=== PATIENT | female | born 2000 | race Caucasian/White ===

== ENCOUNTER 2024-08-09 16:34 | Emergency (ER) | payer MEDICAID, SELFPAY ==
[2024-08-09 17:04] VITALS: BP 146/90; PULSE 85; RESP 20; TEMP 37.4; O2SAT 95
--- NOTE | 2024-08-09 17:20 | XR_ITS ---
Examination: CT brain head without contrast. 2-D sagittal coronal reconstructions Date and time of exam:August 09, 2024 7055 hours Indications: Seizure with headaches today CTDI: vol (mGy):50.5 DLP: (mGycm):940 Technique: Multiple CT axial sections of the brain have been obtained, 5 mm slice thickness. Contrast has not been administered. 2-D sagittal, coronal reconstructions have been obtained Low dose protocols were performed. One or more of the following dose reduction techniques were used; automated exposure control, adjustment of the mA and/or KV according to patient size, use of iterative reconstruction technique. Findings: No significant ventricular enlargement. Intra-axial or extra-axial hemorrhage density is not seen. No mass effect or midline shift Basal cisterns are not remarkable. Fourth ventricle is midline. Cranial vault intact. Impression: Negative for acute hemorrhage, mass effect or midline shift Consider elective brain MRI follow-up, seizure protocol
--- NOTE | 2024-08-09 17:20 | PD.EDRME ---
Rapid Medical Screening Exam E Arrival date/time: 08/09/24 16:34 This is a 23-year-old female that comes into the emergency room with complaints of seizure x 2 in the last 2 weeks. Per patient patient's family has a long history of seizure disorder. Patient denies fever chills. Patient states that today she has a headache and she has been vomiting as a result. Patient has a history of depression and anxiety. I have greeted and performed a focused initial assessment of this patient. Initial appropriate labs ordered at this time. A comprehensive ED assessment and evaluation of the patient and analysis of all test and completion of medical decision making process will be conducted by additional ED provider. Chief Complaint: Headache Time Seen by Provider: 08/09/24 16:45 Vital signs: Vital Signs Temperature 99.3 F 08/09/24 17:04 Pulse Rate 85 08/09/24 17:04 Respiratory Rate 20 08/09/24 17:04 Blood Pressure 146/90 H 08/09/24 17:04 Pulse Oximetry (%) 95 08/09/24 17:04 Oxygen Delivery Method Room Air 08/09/24 17:04
[2024-08-09 17:47] LABS: Basophils # (Auto) 0.1 Thou/mm3 (0.0-0.2); Basophils % (Auto) 0 % (0-2.5); Eosinophils % (Auto) 0 % (0-10); Hematocrit 46.2 % (36.0-46.0); Hemoglobin 15.5 g/dL (12.0-16.0); Immature Granulocytes % (Auto) 0 % (0-0); Immature Granulocytes Auto 0.03 Thou/mm3 (0.00-0.00); Lymphocytes # (Auto) 2.1 Thou/mm3 (1.0-4.8); Lymphocytes % (Auto) 19 % (10-50); Mean Corpuscular HGB Conc 33.5 g/dl (31.0-37.0); Mean Corpuscular Hemoglobin 27.4 pg (25.0-35.0); Mean Corpuscular Volume 82 fL (80-100); Monocytes # (Auto) 0.6 Thou/mm3 (0.0-0.8); Monocytes % (Auto) 6 % (0-12); Neutrophils # (Auto) 8.3 Thou/mm3 (1.8-7.7); Neutrophils % (Auto) 75 % (37-80); Nucleated Red Blood Cell % 0 /100 WBC (0); Platelet Count 491 Thou/mm3 (140-440); RDW Standard Deviation 40.7 fL (36.4-46.3); Red Blood Count 5.66 Miln/mm3 (4.00-5.20); White Blood Count 11.2 Thou/mm3 (3.6-11.0)
[2024-08-09] MEDS: ONDANSETRON ODT 4 MG TABRAP PO (17:51)
[2024-08-09 18:06] LABS: Alanine Aminotransferase 13 U/L (10-49); Albumin, Serum 4.9 gm/dL (3.5-5.0); Albumin/Globulin Ratio 1.4 (1.2-2.2); Alkaline Phosphatase 67 U/L (46-116); Anion Gap 10 (7-16); Aspartate Amino Transferase 12 U/L (0-34); BUN/Creatinine Ratio 16 Ratio (12-20); Bilirubin,Total 0.3 mg/dL (0.3-1.2); Blood Urea Nitrogen 11 mg/dL (9-23); Calcium 9.7 mg/dL (8.3-10.6); Calcium (Corrected) 9.7 mg/dL (8.5-10.1); Carbon Dioxide 25.6 mMol/L (20.0-31.0); Chloride 105 mMol/L (98-107); Creatinine (Component) 0.7 mg/dL (0.6-1.3); Globulin 3.4 gm/dL (2.3-3.5); Glucose 103 mg/dL (74-106); Osmolality,Calculated 280 (275-295); Potassium 3.8 mMol/L (3.4-5.1); Sodium 141 mMol/L (136-145); Total Protein 8.3 gm/dL (5.7-8.2); eGFR > 60 See Note
[2024-08-09 18:30] LABS: Bilirubin,Urine Negative (Negative); Blood,Urine Negative (Negative); Clarity,Urine Clear (Clear/Hazy); Collection Type, Urine Voided; Color,Urine Yellow (Lt Yel-Yel); Culture Indicated,Urine Not Indicated; Glucose, Urine Negative (Negative); Ketones,Urine Trace (Negative); Leukocyte Esterase,Urine Negative (Negative); Nitrite,Urine Negative (Negative); PH,Urine 6.5 (5.0-7.0); Protein,Urine 1+ (Neg - Trace); RBC,Urine 11 /hpf (0-3); Specific Gravity,Urine 1.045 (1.001-1.035); Squamous Epithelial Cell,Urine 5 /hpf (0-5); Urobilinogen,Urine Negative mg/dL (0.0-1.0); WBC,Urine 2 /hpf (0-5)
[2024-08-09 19:47] LABS: Amphetamine/Methamp Scrn,U Negative (Negative); Barbiturate Screen,Urine Negative (Negative); Benzodiazepines Screen,Urine Negative (Negative); Benzoylecgonine Screen, Ur Negative (Negative); Fentanyl Screen,Urine Negative (Negative); Opiate Screen,Urine Negative (Negative); THC Screen,Urine Positive (Negative)
--- NOTE | 2024-08-09 20:04 | EDNOTE_ITS ---
ED Headache RME/HPI General Chief Complaint: Headache Stated Complaint: HEADACHE Time Seen by Provider: 08/09/24 16:45 Arrival date/time: 08/09/24 16:34 RME / HPI RME / HPI Narrative: 23-year-old female patient with no significant medical history, came in for evaluation regarding headache. Patient developed sudden onset of headache earlier today, described as dull ache, severity moderate. She also complained of having a lot of anxiety for the last few weeks. 2 weeks ago patient developed witnessed tonic-clonic seizure lasting for less than 2 minutes, x 2. Patient never saw PCP for this problem. Patient denies any fever denies any chills denies any neck pain denies any cough denies any abdominal pain denies any other complaints. Patient is ambulatory. Related Data Previous Rx's ?Medication ?Instructions ?Recorded ibuprofen 800 mg tablet 800 mg PO TID PRN pain #30 t abs 08/09/24 lorazepam 0.5 mg tablet (Ativan) 0.5 mg PO BID PRN anx iety #20 tabs 08/09/24 Allergies Allergy/AdvReac Type Severity Reaction Status Date / Time No Known Allergies Allergy Verified 08/09/24 16:36 Review of Systems Review of Systems Narrative Review of Systems: Review of system reviewed and within normal limits except mentioned in HPI ED Exam Narrative Physical exam: VITAL SIGNS: Reviewed. GENERAL APPEARANCE: Alert and interactive, follows commands, no acute distress, HEAD AND FACE: Non-traumatic. ENT: PERRL, pink conjunctivitis, eyelid no trauma, Mucous membrane moist. NECK: Supple, nontender, no nuchal rigidity. CHEST: No tenderness, no crepitus, no paradoxical movement, no retractions. LUNGS: Clear, well ventilated, symmetric, no rales, no wheezing, no ronchi, no stridor, good breath sounds bilaterally. HEART: Regular rate, regular rhythm, no murmur, no gallops. ABDOMEN: Soft, positive bowel sounds, nondistended, no guarding, nontender, no rebound, no masses, RECTAL: Deferred. GENITAL: Deferred. NEUROLOGICAL: Gross motor function intact sensory function intact, Appropriate for age. MUSCULOSKELETAL: low back nontender, full range of motion. EXTREMITIES: Nontender, full range of motion. SKIN: Color pink, dry, no rash, no lacerations, no abrasions, no contusions. LYMPHATICS: Deferred. Course Quality Measures none Orders Category Date Time Status CT head/brain wo con Stat Exams 08/09/24 17:20 Completed CBC Stat Lab 08/09/24 17:36 Completed Comprehensive Metabolic Panel Stat Lab 08/09/24 17:36 Completed Drug Screen,Urine Stat Lab 08/09/24 18:10 Completed Urinalysis, C/S if Indicated Stat Lab 08/09/24 18:10 Completed Ketorolac Inj [Toradol Inj] Med 08/09/24 20:03 Discontinued 30 mg IM X1 ONE LORazepam [Ativan] Med 08/09/24 20:03 Discontinued 0.5 mg PO X1 ONE Ondansetron Odt [Zofran Odt] Med 08/09/24 17:19 Discontinued 4 mg PO X1 ONE Vital Signs Vital signs: Vital Signs Temperature 99.3 F 08/09/24 17:04 Pulse Rate 85 08/09/24 17:04 Respiratory Rate 20 08/09/24 17:04 Blood Pressure 146/90 H 08/09/24 17:04 Pulse Oximetry (%) 95 08/09/24 17:04 Oxygen Delivery Method Room Air 08/09/24 17:04 Headache MDM Narrative MDM Narrative:: 23-year-old female patient with no significant medical history, came in for evaluation regarding headache. Patient developed sudden onset of headache earlier today, described as dull ache, severity moderate. She also complained of having a lot of anxiety for the last few weeks. 2 weeks ago patient developed witnessed tonic-clonic seizure lasting for less than 2 minutes, x 2. Patient never saw PCP for this problem. Patient denies any fever denies any chills denies any neck pain denies any cough denies any abdominal pain denies any other complaints. Patient is ambulatory. CT scan of the head came back unremarkable. Patient's workup workup today all came back normal. Patient was given Toradol and Ativan with significant improvement of symptoms. Patient was advised to follow-up with PCP this Sunday and for referral to neurologist to rule out seizure disorder. There is no recurrence of seizure noted in the emergency room. Patient data External records reviewed:: None Clinical information provided by:: patient and family Social determinants that could affect healthcare access:: none Patient has the following chronic illnesses:: None How is presenting disease/condition affected by chronic disease/condition?: no chronic disease Evaluation data The following diagnostics were reviewed and interpreted by me:: lab results and radiology exam(s) Lab and/or radiology exams considered but not ordered:: None Interpretation Summary: See results in [facility] Medications / Prescriptions Medications or Prescriptions considered but not ordered:: None Medication administrations:: Medication Administration History Discontinued Medications Ketorolac Tromethamine (Ketorolac Inj 60 Mg/2 Ml Vial) 30 mg IM X1 ONE Stop: 08/09/24 20:04 Last Admin: 08/09/24 20:27 Dose: 30 mg Documented By: OMAR Lorazepam (Lorazepam 0.5 Mg Tablet) 0.5 mg PO X1 ONE Stop: 08/09/24 20:04 Last Admin: 08/09/24 20:36 Dose: Not Given Documented By: OMAR Non-Admin Reason: Patient Refused Ondansetron HCl (Ondansetron Odt 4 Mg Tabrap) 4 mg PO X1 ONE; Protocol Stop: 08/09/24 17:20 Last Admin: 08/09/24 17:51 Dose: 4 mg Documented By: Huber Watt Torjazmin Consultations Consultation(s) initiated? (list below): No Diagnosis Differential diagnosis headache: migraine and headache Most likely diagnosis given after review of the tests above:: Anxiety, headache Admission Indicated Admission indicated?: not indicated Admission Request Was there a request for admission?: No Disposition Plan Disposition Plan: Discharge Discharge Attestation Discharge Attestation: The patient and all family members were given an opportunity to ask questions and understood the discharge instructions. Discharge instructions specifically effects, indications for sooner follow up or return to the emergency department, and the expected course of current diagnosis. Patient condition: Stable Discharge Plan Plan Patient Disposition: HOME (Self Care) Disposition Comment: Stable Prescriptions/Referrals Prescriptions/Med Rec: New ibuprofen 800 mg tablet 800 mg PO TID PRN (Reason: pain) Qty: 30 0RF lorazepam [Ativan] 0.5 mg tablet 0.5 mg PO BID PRN (Reason: anxiety) Qty: 20 0RF Referrals: No Primary/Family,Physician [Primary Care Provider] - In 1 week Problem List Clinical Impression: Headache, Anxiety Patient/Caregiver Discharge Instructions Discharge Activity: activity as tolerated Education Materials: ED Anxiety Reaction Additional Instructions: Thank you for the opportunity for serving you today. You are stable for discharged . You are advised to: Follow-up with your PCP in 1 to 2 days and as per referral to neurologist to rule out seizure disorder You are not allowed to drive, climb or swim until you are seen by neurologist Return to ED for worsening of symptoms Increase oral fluids Take medication as prescribed Print Language: Mohawk Stand Alone Forms: Olive Award Info., Patient Portal Info Letter PA/MACHINE OPERATOR TRANSPLANTER Supervising Physician PA/MACHINE OPERATOR TRANSPLANTER Supervising Physician: MD Iveth
[2024-08-09] MEDS: KETOROLAC INJ 60 MG/2 ML VIAL 30 MG IM (20:27)
[2024-08-09 20:37] VITALS: BP 125/85; PULSE 60; RESP 18; TEMP 37.1; O2SAT 98
== END 2024-08-09 21:12 | disposition home or self-care (01) ==
PROVIDERS: Nurse Practitioner Family; Emergency Provider Emergency Medicine
DX: R51.9 Headache, unspecified (principal); F41.9 Anxiety disorder, unspecified
CPT/HCPCS: 36415; 70450; 80053; 80307; 81001; 85025; 96372; 99284; J1885; Q0162